=== PATIENT | female | born 1950 | race Caucasian/White ===

== ENCOUNTER 2018-07-16 20:40 | Emergency (ER) | payer BC ==
[2018-07-16] MEDS ORDERED: EPINEPHrine 1 MG/ML SDV IM ONE (21:14)
[2018-07-16] MEDS ORDERED: Albuterol/Ipratropium 3.0-0.5 MG/3 ML Neb Soln NEB ONE (21:14)
--- NOTE | 2018-07-16 21:15 | EDM.PDOC ---
ED HPI GENERAL MEDICAL PROBLEM - General Chief Complaint: Allergic Reaction Stated Complaint: allergic reaction Time Seen by Provider: 07/16/18 21:05 Source of Information: Reports: Patient History Limitations: Reports: No Limitations - History of Present Illness INITIAL COMMENTS - FREE TEXT/NARRATIVE: States that at about 1900 this evening she started feeling an allergic reaction starting and she took 2 benadryl and her flonase. She thought that earlier she was just getting a cold but it then progressed into difficulty breathing. She states that the phlegm started to build up in her throat and her chest became tight and she had increasing difficulty breathing and the meds she took were not working. She used to take allergy shots many years ago. June 19 she started to take allergy drops directed by Dr. Vines. She does 2 in the morning and 2 late afternoon. She had a reaction she controlled at home 10 days ago but this one was worse. She was involuntary of stool enroute to the ER. When she arrived here it was reported her color was dusky and she was SOB. Epi sq and duonebs were given immediately by ER nurses. When I arrived she had sats at 96% on room air and she felt much better. Was still congested nasally. Denied any SOB or wheezing. States that her wheezing stopped shortly after getting the above meds. She states that she feels much better She did not notify Dr. Vines about the reaction she had 10 days ago that she took care of with the benadryl. She doesn't feel she did anything different today than she normally does that would have triggered a reaction. Onset: Sudden Onset Date: 07/16/18 Onset Time: 19:00 Location: Reports: Chest Severity: Severe Associated Symptoms: Reports: Cough, Shortness of Breath, Other (see HPI) - Related Data Allergies Allergy/AdvReac Type Severity Reaction Status Date / Time horse dander Allergy Other Verified 07/16/18 20:53 house dust mite Allergy Other Verified 07/16/18 20:52 nickel Allergy Itching Verified 07/16/18 20:52 shellfish derived Allergy Cannot Verified 07/16/18 20:52 Remember zinc Allergy Itching Unverified 07/16/18 21:15 Home Meds: Home Meds Ezetimibe 10 mg PO DAILY 04/02/18 [History] Fluticasone Propionate [Flovent] 2 spray NASBOTH BID PRN 04/02/18 [History] Levothyroxine 112 mcg PO DAILY 04/02/18 [History] Multivitamin [Multi-Day Vitamins] 1 tab PO DAILY 04/02/18 [History] Simvastatin [Zocor] 80 mg PO DAILY 04/02/18 [History] Past Medical History HEENT History: Reports: None Cardiovascular History: Reports: None Respiratory History: Reports: Other (See Below) Other Respiratory History: allergies Gastrointestinal History: Reports: None Genitourinary History: Reports: None 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 Musculoskeletal History: Reports: None Neurological History: Reports: None Psychiatric History: Reports: None Endocrine/Metabolic History: Reports: None, Hypothyroidism Hematologic History: Reports: None Immunologic History: Reports: None Oncologic (Cancer) History: Reports: None Dermatologic History: Reports: None - Past Surgical History Head Surgeries/Procedures: Reports: None HEENT Surgical History: Reports: None Cardiovascular Surgical History: Reports: None Respiratory Surgical History: Reports: None GI Surgical History: Reports: None Female Surgical History: Reports: Tubal Ligation Endocrine Surgical History: Reports: None Neurological Surgical History: Reports: None Musculoskeletal Surgical History: Reports: None Oncologic Surgical History: Reports: None Social & Family History - Family History Family Medical History: Noncontributory - Tobacco Use Smoking Status *Q: Never Smoker - Recreational Drug Use Recreational Drug Use: No ED ROS ALLERGIC REACTION - Review of Systems Review Of Systems: See Below Constitutional: Denies: Fever, Chills Respiratory: Reports: Shortness of Breath, Wheezing, Cough Cardiovascular: Reports: No Symptoms GI/Abdominal: Reports: Other (involuntary of stool coming to the ER) : Reports: No Symptoms Skin: Reports: No Symptoms. Denies: Rash Neurological: Denies: Confusion ED EXAM GENERAL NO PERIP PULSE - Physical Exam Exam: See Below Text/Narrative:: When I arrived she had already received the epi and duoneb and was resting without any distress. Exam Limited By: No Limitations General Appearance: Alert, WD/WN, No Apparent Distress Ears: Normal External Exam Nose: Normal Inspection Throat/Mouth: Normal Inspection, Normal Oropharynx Head: Atraumatic Neck: Normal Inspection, Supple Respiratory/Chest: No Respiratory Distress, Lungs Clear, Normal Breath Sounds Cardiovascular: Regular Rate, Rhythm, No Edema GI/Abdominal: Normal Bowel Sounds, Soft, Non-Tender Extremities: Normal Inspection, Normal Capillary Refill Neurological: Alert, Oriented Skin Exam: Warm, Dry, Intact Course - Vital Signs Last Recorded V/S: Last Vital Signs Temp 98.4 F 07/16/18 20:41 Pulse 110 H 07/16/18 20:41 Resp 24 H 07/16/18 20:41 BP 151/89 H 07/16/18 20:41 Pulse Ox 96 07/16/18 20:41 Departure - Departure Time of Disposition: 21:48 Disposition: Home, Self-Care 01 Condition: Good Clinical Impression: Allergic reaction Qualifiers: Encounter type: initial encounter Qualified Code(s): T78.40XA - Allergy, unspecified, initial encounter - Discharge Information *PRESCRIPTION DRUG MONITORING PROGRAM REVIEWED*: No *COPY OF PRESCRIPTION DRUG MONITORING REPORT IN PATIENT DIMITRY: No Instructions: Bronchospasm, Adult, [id number] Additional Instructions: Call Dr. Nolan tomorrow prior to taking any further allergy drops continue to use benadryl as needed for the reactions or if any more congestion. Epipen to use at home if needed for any future reactions. - Problem List & Annotations (1) Allergic reaction SNOMED Code(s): 792132572 Code(s): T78.40XA - ALLERGY, UNSPECIFIED, INITIAL ENCOUNTER Status: Acute Priority: High Current Visit: Yes Qualifiers: Encounter type: initial encounter Qualified Code(s): T78.40XA - Allergy, unspecified, initial encounter - Problem List Review Problem List Initiated/Reviewed/Updated: Yes
== END 2018-07-16 21:55 | disposition home or self-care (01) ==
LOC: CC.ED 20:40
DX: R06.02 Shortness of breath (principal); T45.0X5A Adverse effect of antiallergic and antiemetic drugs, initial encounter; T49.6X5A Adverse effect of otorhinolaryngological drugs and preparations, initial encounter; R05 Cough; E03.9 Hypothyroidism, unspecified; Z79.899 Other long term (current) drug therapy
CPT/HCPCS: 94640; 96372; 99283; J0171; J7620-GY

== ENCOUNTER 2021-07-02 11:55 | Emergency (ER) | payer MEDICARE, BC ==
[2021-07-02] MEDS ORDERED: methylPREDNISolone Sodium Succinate 125 MG/2 ML SDV IVPUSH STA (12:29)
[2021-07-02] MEDS ORDERED: Albuterol/Ipratropium 3.0-0.5 MG/3 ML Neb Soln NEB ONE (12:29)
--- NOTE | 2021-07-02 12:40 | EDM.PDOC ---
ED HPI GENERAL MEDICAL PROBLEM - General Chief Complaint: General Stated Complaint: bad cough Time Seen by Provider: 07/02/21 12:29 Source of Information: Reports: Patient History Limitations: Reports: No Limitations - History of Present Illness INITIAL COMMENTS - FREE TEXT/NARRATIVE: This patient is a 70 year old female that presents to the ER with shortness of breath and productive cough. 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 Patient reports then over the past couple days having a productive cough mucous, and tightness in her chest with wheezing. Patient reports being short of breath. Patient denies headache, lightheaded, dizzy, n, v, d, f, neck pain, neck stiffness, abd pain, urinary/bowel changes. Patient reports that her chest does hurt when she take big deep breaths and cough. Patient is alert and oriented. She unable to talk in a full sentence without sto pping to take a breath. Neb and IV steroids ordered. She is currently getting 2L NC on 92%. Onset Date: 06/28/21 Severity: Moderate Improves with: Reports: None Worsens with: Reports: None Associated Symptoms: Reports: Cough, cough w sputum, Malaise, Shortness of Breath. Denies: Confusion, Chest Pain, Diaphoresis, Fever/Chills, Headaches, Loss of Appetite, Nausea/Vomiting, Rash, Seizure, Syncope, Weakness Bilateral Thoracic Pain Score (Numeric/FACES): 7 - Related Data Allergies Allergy/AdvReac Type Severity Reaction Status Date / Time horse dander Allergy Other Verified 07/02/21 12:12 house dust mite Allergy Other Verified 07/02/21 12:12 nickel Allergy Itching Verified 07/02/21 12:12 shellfish derived Allergy Cannot Verified 07/02/21 12:12 Remember zinc Allergy Itching Verified 07/02/21 12:12 Home Meds: Home Meds Ezetimibe 10 mg PO DAILY 04/02/18 [History] Fluticasone Propionate [Flovent] 2 spray NASBOTH BID PRN 04/02/18 [History] Levothyroxine 112 mcg PO DAILY 04/02/18 [History] Multivitamin [Multi-Day Vitamins] 1 tab PO DAILY 04/02/18 [History] Simvastatin [Zocor] 80 mg PO DAILY 04/02/18 [History] predniSONE [Prednisone] 5 mg PO ASDIRECTED #1 tab.ds.pk 07/02/21 [Rx] Past Medical History HEENT History: Reports: None Cardiovascular History: Reports: None Respiratory History: Reports: Other (See Below) Other Respiratory History: allergies Gastrointestinal History: Reports: None Genitourinary History: Reports: None 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 Musculoskeletal History: Reports: None Neurological History: Reports: None Psychiatric History: Reports: None Endocrine/Metabolic History: Reports: None, Hypothyroidism Hematologic History: Reports: None Immunologic History: Reports: None Oncologic (Cancer) History: Reports: None Dermatologic History: Reports: None - Past Surgical History Head Surgeries/Procedures: Reports: None HEENT Surgical History: Reports: None Cardiovascular Surgical History: Reports: None Respiratory Surgical History: Reports: None GI Surgical History: Reports: None Female Surgical History: Reports: Tubal Ligation Endocrine Surgical History: Reports: None Neurological Surgical History: Reports: None Musculoskeletal Surgical History: Reports: None Oncologic Surgical History: Reports: None Social & Family History - Family History Family Medical History: No Pertinent Family History - Tobacco Use Tobacco Use Status *Q: Never Tobacco User - Caffeine Use Caffeine Use: Reports: Coffee - Recreational Drug Use Recreational Drug Use: No ED ROS GENERAL - Review of Systems Review Of Systems: See Below Constitutional: Reports: Fatigue. Denies: Fever, Chills, Night Sweats, Diaphoresis, Decreased Appetite HEENT: Reports: Rhinitis, Sinus Problem, Throat Pain Respiratory: Reports: Shortness of Breath, Wheezing, Pleuritic Chest Pain, Cough, Sputum. Denies: Hemoptysis Cardiovascular: Reports: No Symptoms Endocrine: Reports: No Symptoms GI/Abdominal: Reports: No Symptoms : Reports: No Symptoms Musculoskeletal: Reports: No Symptoms Skin: Reports: No Symptoms Neurological: Reports: No Symptoms Psychiatric: Reports: No Symptoms Hematologic/Lymphatic: Reports: No Symptoms Immunologic: Reports: No Symptoms ED EXAM, GENERAL - Physical Exam Exam: See Below Exam Limited By: No Limitations General Appearance: Alert, WD/WN, No Apparent Distress Eye Exam: Bilateral Eye: Normal Inspection, PERRL Ears: Normal External Exam, Normal Canal, Hearing Grossly Normal, Normal TMs Ear Exam: Bilateral Ear: Auricle Normal, Canal Normal, TM normal Nose: Normal Inspection, Normal Mucosa, No Blood Throat/Mouth: Normal Inspection, Normal Lips, Normal Teeth, Normal Gums, Normal Oropharynx, Normal Voice, No Airway Compromise Head: Atraumatic, Normocephalic Neck: Normal Inspection, Supple, Non-Tender, Full Range of Motion Respiratory/Chest: Decreased Breath Sounds, Wheezing (throughout), Other (stops towards end of sentence talking, to take deep breath. ). No: Accessory Muscle Use, Retractions, Splinting Peripheral Pulses: 2+: Radial (L), Radial (R), Popliteal (R), Posterior Tibial (L), Posterior Tibial (R), Dorsalis Pedis (L), Dorsalis Pedis (R) GI/Abdominal: Soft, Non-Tender Back Exam: Normal Inspection, Full Range of Motion Extremities: Normal Inspection, Normal Range of Motion, Non-Tender, No Pedal Edema, Normal Capillary Refill Neurological: Alert, Oriented, Normal Cognition, Normal Gait, No Motor/Sensory Deficits Psychiatric: Normal Affect, Normal Mood Skin Exam: Warm, Dry, Intact, Normal Color, No Rash Lymphatic: No Adenopathy Course - Vital Signs Last Recorded V/S: Last Vital Signs Temp 98.0 F 07/02/21 12:00 Pulse 98 07/02/21 12:00 Resp 20 07/02/21 12:00 BP 128/85 07/02/21 12:00 Pulse Ox 91 L 07/02/21 12:00 - Orders/Labs/Meds Orders: Active Orders 24 hr Category Date Time Status RT Aerosol Therapy [RC] ASDIRECTED Care 07/02/21 12:29 Active RT Post Treatment Assessment [RC] Click to Edit Care 07/02/21 15:28 Active RT Pre-Treatment Assessment [RC] Click to Edit Care 07/02/21 15:28 Active Ang Chest [CT] Stat Exams 07/02/21 13:28 Ordered Chest 2V [CR] Stat Exams 07/02/21 12:29 Taken CORONAVIRUS COVID-19 PCR PHL Stat Lab 07/02/21 15:30 Ordered CULTURE BLOOD [BC] Stat Lab 07/02/21 12:35 Received CULTURE BLOOD [BC] Stat Lab 07/02/21 12:35 Received Blood Culture x2 Reflex Set [OM.PC] Stat Oth 07/02/21 12:29 Ordered Labs: Laboratory Tests 07/02/21 07/02/21 07/02/21 Range/Units 12:05 12:35 12:35 WBC 7.6 (4.0-11.0) 10^3/uL RBC 4.62 (4.00-5.50) x10^6/uL Hgb 12.7 (12.0-16.0) g/dL Hct 38.2 (37.0-47.0) % MCV 82.7 L (83.0-97.0) fL MCH 27.5 (27.0-32.0) pg MCHC 33.2 (32.0-36.0) g/dL RDW Coeff of Rickie 13.6 (11.0-15.0) % Plt Count 259 (150-400) 10^3/uL Immature Gran % (Auto) 0.1 (0.0-4.9) % Neut % (Auto) 59.0 (41-71) % Lymph % (Auto) 29.8 (24-44) % Mchenry % (Auto) 7.5 (0-10) % Eos % (Auto) 2.9 (0-6) % Baso % (Auto) 0.7 (0-1) % Neut # (Auto) 4.51 (1.80-8.00) x10^3/uL Lymph # (Auto) 2.28 (0.60-5.00) 10^3/uL Mchenry # (Auto) 0.57 (0.00-1.50) 10^3/uL Eos # (Auto) 0.22 (0.00-1.50) 10^3/uL Baso # (Auto) 0.05 (0.00-0.50) 10^3/uL Immature Gran # (Auto) 0.01 (0.00-0.49) 10^3/uL PT 10.1 (9.7-12.3) SEC INR 0.93 (0.92-1.18) D-Dimer, Quantitative 1.15 H (0.00-0.50) Sodium (136-145) mEq/L Potassium (3.5-5.0) mEq/L Chloride (98-106) mEq/L Carbon Dioxide (21-32) mmol/L BUN (7-18) mg/dL Creatinine (0.6-1.0) mg/dL Est Cr Clr Drug Dosing mL/min Estimated GFR (MDRD) (>=60) mL/min Glucose (75-99) mg/dL Lactic Acid (0.4-2.0) mmol/L Calcium (8.4-10.1) mg/dL Total Bilirubin (0.0-1.0) mg/dL AST (15-37) U/L ALT (12-78) U/L Alkaline Phosphatase (46-116) U/L Creatine Kinase (21-215) U/L Troponin I High Sens (<=51) pg/mL NT-Pro-B Natriuret Pep (0-1000) pg/mL Total Protein (6.4-8.2) g/dL Albumin (3.4-5.0) g/dL SARS CoV-2 RNA Rapid JUAREZ Negative (NEGATIVE) 07/02/21 07/02/21 Range/Units 12:35 12:35 WBC (4.0-11.0) 10^3/uL RBC (4.00-5.50) x10^6/uL Hgb (12.0-16.0) g/dL Hct (37.0-47.0) % MCV (83.0-97.0) fL MCH (27.0-32.0) pg MCHC (32.0-36.0) g/dL RDW Coeff of Rickie (11.0-15.0) % Plt Count (150-400) 10^3/uL Immature Gran % (Auto) (0.0-4.9) % Neut % (Auto) (41-71) % Lymph % (Auto) (24-44) % Mchenry % (Auto) (0-10) % Eos % (Auto) (0-6) % Baso % (Auto) (0-1) % Neut # (Auto) (1.80-8.00) x10^3/uL Lymph # (Auto) (0.60-5.00) 10^3/uL Mchenry # (Auto) (0.00-1.50) 10^3/uL Eos # (Auto) (0.00-1.50) 10^3/uL Baso # (Auto) (0.00-0.50) 10^3/uL Immature Gran # (Auto) (0.00-0.49) 10^3/uL PT (9.7-12.3) SEC INR (0.92-1.18) D-Dimer, Quantitative (0.00-0.50) Sodium 136 (136-145) mEq/L Potassium 4.0 (3.5-5.0) mEq/L Chloride 99 (98-106) mEq/L Carbon Dioxide 26 (21-32) mmol/L BUN 10 (7-18) mg/dL Creatinine 0.7 (0.6-1.0) mg/dL Est Cr Clr Drug Dosing 72.72 mL/min Estimated GFR (MDRD) > 60 (>=60) mL/min Glucose 105 H (75-99) mg/dL Lactic Acid 0.7 (0.4-2.0) mmol/L Calcium 8.9 (8.4-10.1) mg/dL Total Bilirubin 0.4 (0.0-1.0) mg/dL AST 72 H (15-37) U/L ALT 78 (12-78) U/L Alkaline Phosphatase 203 H (46-116) U/L Creatine Kinase 205 (21-215) U/L Troponin I High Sens 16.4 (<=51) pg/mL NT-Pro-B Natriuret Pep 72 (0-1000) pg/mL Total Protein 7.8 (6.4-8.2) g/dL Albumin 3.4 (3.4-5.0) g/dL SARS CoV-2 RNA Rapid JUAREZ (NEGATIVE) Meds: Medications Discontinued Medications Generic Name Dose Route Start Last Admin Trade Name Kingq PRN Reason Stop Dose Admin Albuterol 1 gm 07/02/21 15:27 Albuterol 8 Gm Inhaler INH 07/02/21 15:28 NOW STA Albuterol/Ipratropium 3 ml 07/02/21 12:29 07/02/21 13:06 Albuterol/Ipratropium 3.0-0.5 Mg/3 Ml Neb Soln NEB 07/02/21 12:30 3 ml ONETIME ONE Administration Iopamidol 100 ml 07/02/21 13:47 07/02/21 14:08 Iopamidol 755 Mg/Ml 100 Ml Bottle IVPUSH 07/02/21 13:48 100 ml ONETIME ONE Administration Methylprednisolone Sodium Succinate 125 mg 07/02/21 12:29 07/02/21 13:06 Methylprednisolone Sodium Succinate 125 Mg/2 Ml Sdv IVPUSH 07/02/21 12:30 125 mg NOW STA Administration - Radiology Interpretation Free Text/Narrative:: CXR: No acute findings CTA: No pulmonary embolus. lungs clear probably minimal atelectasis. Nonspecific lymph nodes. CT Results Date: 07/02/21 CT Results Time: 15:04 - Re-Assessments/Exams Free Text/Narrative Re-Assessment/Exam: 07/02/21 13:28 Patient is moving much better air after breathing treatment. She reports the breathing treatment did help her feel better. Discussed her elevated d-dimer and getting a CT of chest. She has agreed to this after explained risk vs benefits. Patient oxygen saturation is now 99% on 2L NC. 07/02/21 15:02 Still waiting on CTA results. Patient still reports she is breathing better. 07/02/21 15:22 CTA normal. Patient oxygen saturation is 98% on RA. She reports she feels much better. Departure - Departure Time of Disposition: 15:21 Disposition: Home, Self-Care 01 Condition: Fair Clinical Impression: Acute bronchitis Qualifiers: Bronchitis organism: unspecified organism Qualified Code(s): J20.9 - Acute bronchitis, unspecified - Discharge Information *PRESCRIPTION DRUG MONITORING PROGRAM REVIEWED*: Not Applicable *COPY OF PRESCRIPTION DRUG MONITORING REPORT IN PATIENT DIMITRY: Not Applicable Prescriptions: predniSONE [Prednisone] 5 mg PO ASDIRECTED #1 tab.ds.pk Instructions: Acute Bronchitis, Adult, [id number] Referrals: PCP,None [Primary Care Provider] - Forms: ED Department Discharge Additional Instructions: Followup with your primary care provider Return to the ER for worsening of condition or any emergent concerns such as difficulty breathing or other concerns Increase fluids Tylenol or Motrin for fever Over the counter medications as needed Pro-Air 1-2 puffs every 4 hours as needed for shortness of breath #1 take home Medrol Dose Pack As directed #1 no refill: Sent to [place] pharmacy Sepsis Event Note (ED) - Evaluation Sepsis Screening Result: No Definite Risk - Focused Exam Vital Signs: Vital Signs Temp Pulse Resp BP Pulse Ox 07/02/21 12:00 98.0 F 98 20 128/85 91 L - My Orders Last 24 Hours: My Active Orders 07/02/21 12:29 RT Aerosol Therapy [RC] ASDIRECTED Chest 2V [CR] Stat Blood Culture x2 Reflex Set [OM.PC] Stat 07/02/21 12:35 CULTURE BLOOD [BC] Stat CULTURE BLOOD [BC] Stat 07/02/21 13:28 Ang Chest [CT] Stat 07/02/21 15:28 RT Post Treatment Assessment [RC] Click to Edit RT Pre-Treatment Assessment [RC] Click to Edit 07/02/21 15:30 CORONAVIRUS COVID-19 PCR PHL Stat - Assessment/Plan Last 24 Hours: My Active Orders 07/02/21 12:29 RT Aerosol Therapy [RC] ASDIRECTED Chest 2V [CR] Stat Blood Culture x2 Reflex Set [OM.PC] Stat 07/02/21 12:35 CULTURE BLOOD [BC] Stat CULTURE BLOOD [BC] Stat 07/02/21 13:28 Ang Chest [CT] Stat 07/02/21 15:28 RT Post Treatment Assessment [RC] Click to Edit RT Pre-Treatment Assessment [RC] Click to Edit 07/02/21 15:30 CORONAVIRUS COVID-19 PCR PHL Stat Plan: PLEASE SEE RN NOTE FOR PFSH
[2021-07-02 13:01] LABS: CHLORIDE,CL 99 mEq/L (98-106); SODIUM,NA 136 mEq/L (136-145)
[2021-07-02] MEDS ORDERED: Iopamidol 755 Mg/ML 100 ML Bottle IVPUSH ONE (13:47)
[2021-07-02] MEDS ORDERED: Albuterol 8 GM Inhaler INH STA (15:27)
== END 2021-07-02 16:00 | disposition home or self-care (01) ==
LOC: CC.ED 11:55
DX: J20.9 Acute bronchitis, unspecified (principal); E03.9 Hypothyroidism, unspecified; Z91.048 Other nonmedicinal substance allergy status; Z91.013 Allergy to seafood; Z88.8 Allergy status to other drugs, medicaments and biological substances; Z79.899 Other long term (current) drug therapy; Z20.822 Contact with and (suspected) exposure to COVID-19
CPT/HCPCS: 36415; 71046; 71275; 80053; 82550; 83605; 83880; 84484; 85025; 85379; 85610; 87040; 94640; 96374; 99285; A9270; J2930; Q9967; U0002; 99284; J7620-GY

== ENCOUNTER 2025-07-24 01:12 | Emergency (ER) | payer MEDICARE, BC ==
[2025-07-24] MEDS: methylPREDNISolone Sodium Succinate 125 MG/2 ML SDV IVPUSH STA (01:27)
[2025-07-24 02:14] LABS: BASOPHILS ABSOLUTE AUTO 0.11 10^3/uL (0.00-0.50); BASOPHILS PERCENT AUTO 0.9 % (0-1); EOSINOPHILS ABSOLUTE AUTO 1.05 10^3/uL (0.00-1.50); EOSINOPHILS PERCENT AUTO 8.3 % (0-6); IMMATURE GRAN ABSOLUTE AUTO 0.02 10^3/uL (0.00-0.49); IMMATURE GRAN PERCENT AUTO 0.2 % (0.0-4.9); LYMPHOCYTES ABSOLUTE AUTO 3.96 10^3/uL (0.60-5.00); LYMPHOCYTES PERCENT AUTO 31.4 % (24-44); MONOCYTES ABSOLUTE AUTO 1.06 10^3/uL (0.00-1.50); MONOCYTES PERCENT AUTO 8.4 % (0-10); NEUTROPHILS ABSOLUTE AUTO 6.42 x10^3/uL (1.80-8.00); NEUTROPHILS PERCENT AUTO 50.8 % (41-71); PLATELET COUNT,PLT 231 10^3/uL (150-400); RED BLOOD CELL COUNT 4.29 x10^6/uL (4.00-5.50); WHITE BLOOD CELL COUNT,WBC 12.6 10^3/uL (4.0-11.0)
[2025-07-24 02:29] LABS: ALANINE AMINOTRANSFERASE,ALT 54.0 U/L (12-78); ASPARTATE AMNIOTRANSFERASE,AST 51.0 U/L (15-37); BILIRUBIN TOTAL 0.4 mg/dL (0.0-1.0); BLOOD UREA NITROGEN,BUN 11.0 mg/dL (7-18); CARBON DIOXIDE,CO2 30.0 mmol/L (21-32); CHLORIDE,CL 98.0 mEq/L (98-106); CREATININE 0.7 mg/dL (0.6-1.0); EST CRCL DRUG DOSING (CG) 68.57 mL/min; ESTIMATED GFR 91.0 mL/min (>=60); GLUCOSE RANDOM 119.0 mg/dL (75-99); POTASSIUM,K 4.3 mEq/L (3.5-5.0); PROTEIN TOTAL,TP 7.1 g/dL (6.4-8.2); SODIUM,NA 136.0 mEq/L (136-145)
== END 2025-07-24 03:04 | disposition home or self-care (01) ==
LOC: CC.ED 01:12
DX: J20.9 Acute bronchitis, unspecified (principal); E03.9 Hypothyroidism, unspecified; Z91.013 Allergy to seafood; Z88.8 Allergy status to other drugs, medicaments and biological substances; Z91.048 Other nonmedicinal substance allergy status; Z79.899 Other long term (current) drug therapy
CPT/HCPCS: 36415; 71046; 80053; 83735; 84484; 85025; 86140; 87428-QW; 93005; 93010; 94640; 96374; 99284; 99285-25; A9270-GY; J2919

== ENCOUNTER 2025-08-21 11:23 | Inpatient (IN) | payer MEDICARE, BC ==
[2025-08-21 11:38] LABS: PLATELET COUNT,PLT 358 10^3/uL (150-400); RED BLOOD CELL COUNT 4.71 x10^6/uL (4.00-5.50); WHITE BLOOD CELL COUNT,WBC 11.9 10^3/uL (4.0-11.0)
[2025-08-21] MEDS: methylPREDNISolone Sodium Succinate 125 MG/2 ML SDV IVPUSH STA (11:42)
[2025-08-21] MEDS: Albuterol 0.083% 2.5 MG/3 ML Neb Soln NEB ONE (11:43)
[2025-08-21] MEDS: Magnesium Sulfate 2 GM/50 mL 2 GM in Premix Bag 1 BAG IV ONE (11:49)
[2025-08-21 11:56] LABS: ALANINE AMINOTRANSFERASE,ALT 54.0 U/L (12-78); ASPARTATE AMNIOTRANSFERASE,AST 47.0 U/L (15-37); BILIRUBIN TOTAL 0.5 mg/dL (0.0-1.0); BLOOD UREA NITROGEN,BUN 10.0 mg/dL (7-18); CARBON DIOXIDE,CO2 26.0 mmol/L (21-32); CHLORIDE,CL 101.0 mEq/L (98-106); CREATININE 0.6 mg/dL (0.6-1.0); EST CRCL DRUG DOSING (CG) 82.98 mL/min; GLUCOSE RANDOM 163.0 mg/dL (75-99); POTASSIUM,K 3.4 mEq/L (3.5-5.0); PROTEIN TOTAL,TP 7.2 g/dL (6.4-8.2); SODIUM,NA 138.0 mEq/L (136-145)
[2025-08-21 11:58] LABS: ESTIMATED GFR 94.0 mL/min (>=60)
[2025-08-21 12:00] LABS: EOSINOPHILS ABSOLUTE MAN 0.83 10^3/uL (0.00-0.45); EOSINOPHILS PERCENT MAN 7 % (0-5); LYMPHOCYTES ABSOLUTE MAN 6.78 10^3/uL (1.00-4.80); LYMPHOCYTES PERCENT MAN 57 % (21-55); MONOCYTES ABSOLUTE MAN 0.71 10^3/uL (0.00-0.80); MONOCYTES PERCENT MAN 6 % (2-12); NEUTROPHILS ABSOLUTE MAN 3.57 10^3/uL (1.80-7.00); SEG NEUTROPHILS PERCENT MAN 30 % (35-85)
[2025-08-21] MEDS: Iopamidol 755 Mg/ML 100 ML Bottle IVPUSH ONE (13:11)
[2025-08-21] MEDS ORDERED: Fluticasone NASAL Spray 16 GM Bottle NASBOTH PRN (15:09)
[2025-08-21] MEDS ORDERED: Sodium Chloride 0.9% 10 ML Syringe FLUSH PRN (15:09)
[2025-08-21] MEDS ORDERED: Ondansetron 4 MG/2 ML SDV IV PRN (15:09)
[2025-08-21] MEDS ORDERED: Ondansetron 4 MG Tab.DIS PO PRN (15:09)
[2025-08-21] MEDS ORDERED: Albuterol 0.083% 2.5 MG/3 ML Neb Soln NEB PRN (15:09)
[2025-08-21] MEDS: Budesonide 0.5 MG/2 ML Neb Susp NEB SCH (16:54)
[2025-08-21] MEDS: methylPREDNISolone Sodium Succinate 125 MG/2 ML SDV IVPUSH SCH (19:56)
[2025-08-22 07:43] LABS: BASOPHILS ABSOLUTE AUTO 0.01 10^3/uL (0.00-0.50); BASOPHILS PERCENT AUTO 0.1 % (0-1); EOSINOPHILS ABSOLUTE AUTO 0.01 10^3/uL (0.00-1.50); EOSINOPHILS PERCENT AUTO 0.1 % (0-6); IMMATURE GRAN ABSOLUTE AUTO 0.02 10^3/uL (0.00-0.49); IMMATURE GRAN PERCENT AUTO 0.2 % (0.0-4.9); LYMPHOCYTES ABSOLUTE AUTO 0.88 10^3/uL (0.60-5.00); LYMPHOCYTES PERCENT AUTO 7.6 % (24-44); MONOCYTES ABSOLUTE AUTO 0.60 10^3/uL (0.00-1.50); MONOCYTES PERCENT AUTO 5.2 % (0-10); NEUTROPHILS ABSOLUTE AUTO 10.00 x10^3/uL (1.80-8.00); NEUTROPHILS PERCENT AUTO 86.8 % (41-71); PLATELET COUNT,PLT 210 10^3/uL (150-400); RED BLOOD CELL COUNT 3.90 x10^6/uL (4.00-5.50); WHITE BLOOD CELL COUNT,WBC 11.5 10^3/uL (4.0-11.0)
[2025-08-22 07:47] LABS: ALANINE AMINOTRANSFERASE,ALT 39.0 U/L (12-78); ASPARTATE AMNIOTRANSFERASE,AST 58.0 U/L (15-37); BILIRUBIN TOTAL 0.4 mg/dL (0.0-1.0); BLOOD UREA NITROGEN,BUN 8.0 mg/dL (7-18); CARBON DIOXIDE,CO2 26.0 mmol/L (21-32); CHLORIDE,CL 100.0 mEq/L (98-106); CREATININE 0.3 mg/dL (0.6-1.0); EST CRCL DRUG DOSING (CG) 165.96 mL/min; GLUCOSE RANDOM 137.0 mg/dL (75-99); POTASSIUM,K 4.7 mEq/L (3.5-5.0); PROTEIN TOTAL,TP 6.2 g/dL (6.4-8.2); SODIUM,NA 133.0 mEq/L (136-145)
[2025-08-22 08:04] LABS: ESTIMATED GFR 111.0 mL/min (>=60)
[2025-08-23 07:42] LABS: BASOPHILS ABSOLUTE AUTO 0.00 10^3/uL (0.00-0.50); BASOPHILS PERCENT AUTO 0.0 % (0-1); EOSINOPHILS ABSOLUTE AUTO 0.00 10^3/uL (0.00-1.50); EOSINOPHILS PERCENT AUTO 0.0 % (0-6); IMMATURE GRAN ABSOLUTE AUTO 0.04 10^3/uL (0.00-0.49); IMMATURE GRAN PERCENT AUTO 0.2 % (0.0-4.9); LYMPHOCYTES ABSOLUTE AUTO 0.99 10^3/uL (0.60-5.00); LYMPHOCYTES PERCENT AUTO 5.9 % (24-44); MONOCYTES ABSOLUTE AUTO 0.73 10^3/uL (0.00-1.50); MONOCYTES PERCENT AUTO 4.3 % (0-10); NEUTROPHILS ABSOLUTE AUTO 15.03 x10^3/uL (1.80-8.00); NEUTROPHILS PERCENT AUTO 89.6 % (41-71); PLATELET COUNT,PLT 344 10^3/uL (150-400); RED BLOOD CELL COUNT 4.51 x10^6/uL (4.00-5.50); WHITE BLOOD CELL COUNT,WBC 16.8 10^3/uL (4.0-11.0)
[2025-08-23 07:50] LABS: ALANINE AMINOTRANSFERASE,ALT 39.0 U/L (12-78); ASPARTATE AMNIOTRANSFERASE,AST 28.0 U/L (15-37); BILIRUBIN TOTAL 0.4 mg/dL (0.0-1.0); BLOOD UREA NITROGEN,BUN 13.0 mg/dL (7-18); CARBON DIOXIDE,CO2 28.0 mmol/L (21-32); CHLORIDE,CL 100.0 mEq/L (98-106); CREATININE 0.6 mg/dL (0.6-1.0); EST CRCL DRUG DOSING (CG) 82.98 mL/min; GLUCOSE RANDOM 137.0 mg/dL (75-99); POTASSIUM,K 3.5 mEq/L (3.5-5.0); PROTEIN TOTAL,TP 6.6 g/dL (6.4-8.2); SODIUM,NA 136.0 mEq/L (136-145)
[2025-08-23 07:57] LABS: ESTIMATED GFR 94.0 mL/min (>=60)
[2025-08-24 07:30] LABS: ALANINE AMINOTRANSFERASE,ALT 36 U/L (12-78); ASPARTATE AMNIOTRANSFERASE,AST 19 U/L (15-37); BILIRUBIN TOTAL 0.3 mg/dL (0.0-1.0); BLOOD UREA NITROGEN,BUN 15 mg/dL (7-18); CARBON DIOXIDE,CO2 27 mmol/L (21-32); CHLORIDE,CL 102 mEq/L (98-106); CREATININE 0.5 mg/dL (0.6-1.0); EST CRCL DRUG DOSING (CG) 99.58 mL/min; GLUCOSE RANDOM 117 mg/dL (75-99); POTASSIUM,K 3.5 mEq/L (3.5-5.0); PROTEIN TOTAL,TP 6.0 g/dL (6.4-8.2); SODIUM,NA 137 mEq/L (136-145)
[2025-08-24 07:31] LABS: ESTIMATED GFR 98 mL/min (>=60)
[2025-08-24 07:37] LABS: BASOPHILS ABSOLUTE AUTO 0.01 10^3/uL (0.00-0.50); BASOPHILS PERCENT AUTO 0.1 % (0-1); EOSINOPHILS ABSOLUTE AUTO 0.00 10^3/uL (0.00-1.50); EOSINOPHILS PERCENT AUTO 0.0 % (0-6); IMMATURE GRAN ABSOLUTE AUTO 0.12 10^3/uL (0.00-0.49); IMMATURE GRAN PERCENT AUTO 0.8 % (0.0-4.9); LYMPHOCYTES ABSOLUTE AUTO 1.17 10^3/uL (0.60-5.00); LYMPHOCYTES PERCENT AUTO 8.1 % (24-44); MONOCYTES ABSOLUTE AUTO 0.66 10^3/uL (0.00-1.50); MONOCYTES PERCENT AUTO 4.6 % (0-10); NEUTROPHILS ABSOLUTE AUTO 12.52 x10^3/uL (1.80-8.00); NEUTROPHILS PERCENT AUTO 86.4 % (41-71); PLATELET COUNT,PLT 313 10^3/uL (150-400); RED BLOOD CELL COUNT 4.22 x10^6/uL (4.00-5.50); WHITE BLOOD CELL COUNT,WBC 14.5 10^3/uL (4.0-11.0)
== END 2025-08-24 12:30 | disposition home or self-care (01) | DRG 202 ==
LOC: CC.ED 11:23 → CC.MS 14:48 → UNDOADMIN 15:00
PROVIDERS: ADMIT Physician Assistant Medical; ATTEND Physician Assistant Medical
PROC: 3E03329 Introduction of Other Anti-infective into Peripheral Vein, Percutaneous Approach (ICD-10-PCS; principal; 2025-08-21)
PROC: 3E0F7SF Introduction of Other Gas into Respiratory Tract, Via Natural or Artificial Opening (ICD-10-PCS; 2025-08-21)
DX: J45.52 Severe persistent asthma with status asthmaticus (principal); J45.902 Unspecified asthma with status asthmaticus; J18.9 Pneumonia, unspecified organism; E03.9 Hypothyroidism, unspecified; J45.51 Severe persistent asthma with (acute) exacerbation; Z79.899 Other long term (current) drug therapy; Z88.8 Allergy status to other drugs, medicaments and biological substances; Z91.048 Other nonmedicinal substance allergy status; R23.0 Cyanosis; Z79.890 Hormone replacement therapy; Z79.1 Long term (current) use of non-steroidal anti-inflammatories (NSAID); Z79.2 Long term (current) use of antibiotics; Z98.51 Tubal ligation status; Z91.09 Other allergy status, other than to drugs and biological substances
CPT/HCPCS: 36415; 71045; 71275; 80053; 85025; 85379; 86140; 87070; 87205; 93005; 94640; 96365; 96366; 96375; 99223; 99232; 99233; 99238; 99285-25; A9270-GY; J0696; J1650; J2919; J3475; Q9967